=== PATIENT | female | born 1970 | race Caucasian/White ===

== ENCOUNTER 2020-08-31 21:13 | Emergency (ER) | payer BC ==
[~2020-08-31] VITALS: Ht 165.1 cm; Wt 100.0 kg
[2020-08-31 21:28] VITALS: BP 145/86
== END 2020-08-31 21:47 | disposition home or self-care (01) ==
LOC: ER 21:14
DX: U07.1 COVID-19 (principal); R06.02 Shortness of breath; R05 Cough; J45.909 Unspecified asthma, uncomplicated; Z88.1 Allergy status to other antibiotic agents; Z88.5 Allergy status to narcotic agent; Z88.8 Allergy status to other drugs, medicaments and biological substances
CPT/HCPCS: 99281